=== PATIENT | female | born 2000 | race African-American/Black ===

== ENCOUNTER 2022-03-01 22:20 | Inpatient (IN) ==
[2022-03-02 00:11] LABS: Urine Appearance CLOUDY (Clear); Urine Color Yellow (Yellow); Urine Specific Gravity 1.025 (1.001-1.035)
[2022-03-02 00:12] LABS: Bilirubin,Urine Negative (Negative); Blood, Urine Large mg/dL (Negative); Glucose,Urine (UA) Negative (Negative); Ketones,Urine >=160 mg/dL (Negative); Nitrite,Urine Negative (Negative); Protein,Urine 100 mg/dL (Negative)
[2022-03-02 00:14] LABS: Mucus,Urine Occasional /LPF (Occasional); RBC,Urine 43 /HPF (0-4); Squamous Epithelial Cell,Urine Many /HPF (0-10)
[2022-03-02] MEDS ORDERED: MEPERIDINE 50 MG/1 ML VIAL IV ONE (00:20)
[2022-03-02] MEDS ORDERED: LACTATED RINGERS 1,000 ML IV ONE ×3 (00:20→06:03)
[2022-03-02] MEDS ORDERED: ONDANSETRON 4 MG/2 ML VIAL IV ONE (00:21)
[2022-03-02] MEDS ORDERED: TERBUTALINE 1 MG/1 ML VIAL SUBCUT ONE (01:28)
[2022-03-02] MEDS ORDERED: ceFAZolin 3,000 MG in SYRINGE 1 EACH IV ONE (06:47)
[2022-03-02] MEDS ORDERED: TRANEXAMIC ACID 1,000 MG in SODIUM CHLORIDE 0.9% 100 ML IV PRN (06:47)
[2022-03-02] MEDS ORDERED: CARBOPROST TROMETHAMINE 250 MCG/ML AMP IM PRN (06:47)
[2022-03-02] MEDS ORDERED: OXYTOCIN/LR 20 UNIT/1,000 ML BAG IV ONE ×3 (06:47→08:38)
[2022-03-02] MEDS ORDERED: FAMOTIDINE 20 MG/2 ML VIAL IV ONE (06:47)
[2022-03-02] MEDS ORDERED: METHYLERGONOVINE 0.2 MG/1 ML AMP IM PRN (06:47)
[2022-03-02] MEDS ORDERED: miSOPROStoL 200 MCG TABLET RECTAL PRN (06:47)
[2022-03-02] MEDS ORDERED: CITRIC ACID/SODIUM CITRATE 30 ML UDCUP PO ONE (06:47)
[2022-03-02] MEDS ORDERED: BUPIVACAINE SPINAL 0.75% 2 ML AMP SPINAL ONE (06:58)
[2022-03-02] MEDS ORDERED: ONDANSETRON 4 MG/2 ML VIAL ONE (06:58)
[2022-03-02] MEDS ORDERED: buprenorphine HCL 0.3 MG/ML VIAL ONE (06:58)
[2022-03-02] MEDS ORDERED: ePHEDrine 50 MG/ML VIAL IV PRN (07:01)
[2022-03-02] MEDS ORDERED: PROMETHAZINE 25 MG/1 ML VIAL IM PRN (07:01)
[2022-03-02] MEDS ORDERED: diphenhydrAMINE 50 MG/1 ML VIAL IV PRN ×2 (07:01)
[2022-03-02] MEDS ORDERED: hydrOXYzine HCL 25 MG/1 ML VIAL IM PRN (07:01)
[2022-03-02 07:02] LABS: Basophils % 0.1 % (0.0-0.8); Hematocrit 37.1 VOL% (35.7-47.0); Hemoglobin 12.2 GM/DL (12.0-16.0); Immature Granulocytes % 0.9 %; Immature Granulocytes Absolute 0.23 #; Lymphocytes # 0.6 10*3/uL (1.4-4.0); Lymphocytes % 2.3 % (21.3-54.2); Mean Corpuscular HGB Conc 32.9 GM/DL (32-36); Mean Corpuscular Volume 79.1 FL (87-102); Mean Platelet Volume 13.6 FL (9.6-12.0); Monocytes # 1.2 10*3/uL (0.11-0.8); Monocytes % 4.9 % (1.7-12.7); Neutrophils % 91.8 % (38.7-73.9); Platelet Count 176 T/CUMM (130-400); Red Blood Count 4.69 MC/CUMM (3.8-5.5); Red Cell Distribution Width 14.1 % (9.3-17.3); White Blood Count 24.5 T/CUMM (4-12)
[2022-03-02] MEDS ORDERED: TRANEXAMIC ACID 1,000 MG/10 ML VIAL ONE (07:02)
[2022-03-02] MEDS ORDERED: miSOPROStoL 200 MCG TABLET ONE (07:02)
[2022-03-02] MEDS ORDERED: METHYLERGONOVINE 0.2 MG/1 ML AMP ONE (07:03)
[2022-03-02] MEDS ORDERED: SODIUM CHLORIDE 0.9% 100 ML IV ONE (07:03)
[2022-03-02] MEDS ORDERED: CARBOPROST TROMETHAMINE 250 MCG/ML AMP IM ONE (07:03)
[2022-03-02 07:16] LABS: INR 0.9; PT Patient Result 9.9 SECS (10.5-12.0); Partial Thromboplastin Time 29.5 SECS (23.8-32.1)
[2022-03-02 07:21] LABS: Lymphocytes 1 % (20-55); Platelet Estimate Adequate; Total Cells Counted 100
[2022-03-02] MEDS ORDERED: fentaNYL 100 MCG/2 ML VIAL ONE ×2 (07:27→07:38)
[2022-03-02 07:30] LABS: Albumin 2.4 G/DL (3.4-5.0); Bilirubin,Total 0.5 MG/DL (0.20-1.00); Calcium 8.7 MG/DL (8.5-10.1); Osmolality,Calculated 268.1 MOS/KG (273-304); Potassium 3.4 MMOL/L (3.5-5.1); Total Protein 6.7 G/DL (6.4-8.2)
[2022-03-02] MEDS ORDERED: ACETAMINOPHEN INJ 1,000 MG/100 ML VIAL IV ONE (07:32)
[2022-03-02] MEDS ORDERED: propofoL 200 MG/20 ML VIAL IV ONE (07:34)
[2022-03-02] MEDS ORDERED: SUCCINYLCHOLINE 200 MG/10 ML VIAL ONE (07:34)
[2022-03-02 07:39] LABS: Cord Arterial Blood HCO3 18.9 MMOL/L
[2022-03-02 07:40] LABS: Barbiturates Screen,Urine Negative (Negative); Benzodiazepines Screen,Urine Negative (Negative); Cannabinoid Screen,Urine Positive (Negative); Opiate Screen,Urine Negative (Negative); Phencyclidine Screen,Urine Negative (Negative)
[2022-03-02 07:42] LABS: Cord Venous Blood HCO3 19.9 MMOL/L; Cord Venous Blood PCO2 43.4 MMHG; Cord Venous Blood PO2 27.9
[2022-03-02] MEDS ORDERED: HYDROmorphone 1 MG/1 ML SYRINGE IV PRN (08:06)
[2022-03-02] MEDS ORDERED: SODIUM CHLORIDE 0.9% 1,000 ML IV ONE (08:15)
[2022-03-02] MEDS ORDERED: SEVOFLURANE 1 UNIT/15 MINUTE INH ONE (08:15)
[2022-03-02] MEDS: KETOROLAC 30 MG/1 ML VIAL IV SCH ×2 (18:31→20:54)
[2022-03-02] MEDS: ACETAMINOPHEN 500 MG TABLET PO SCH ×2 (18:32→20:52)
[2022-03-02] MEDS ORDERED: ONDANSETRON 4 MG/2 ML VIAL IV PRN (21:14)
[2022-03-02] MEDS ORDERED: SIMETHICONE CHEW 80 MG TABLET PO PRN (21:14)
[2022-03-02] MEDS ORDERED: RHO(D) IMMUNE GLOBULIN 300 MCG SYRINGE IM ONE (21:14)
[2022-03-02] MEDS ORDERED: MAGNESIUM HYDROXIDE SUSP 30 ML UDCUP PO PRN (21:14)
[2022-03-02] MEDS ORDERED: ACETAMINOPHEN 325 MG TABLET PO PRN (21:14)
[2022-03-02] MEDS: DOCUSATE SODIUM 100 MG CAPSULE PO SCH (21:33)
[2022-03-03] MEDS: KETOROLAC 30 MG/1 ML VIAL IV SCH (02:56)
[2022-03-03] MEDS: ACETAMINOPHEN 500 MG TABLET PO SCH (02:58)
[2022-03-03 07:54] LABS: Basophils % 0.1 % (0.0-0.8); Eosinophils % 0.1 % (0.00-10.9); Hematocrit 28.7 VOL% (35.7-47.0); Immature Granulocytes % 0.8 %; Immature Granulocytes Absolute 0.13 #; Lymphocytes # 1.9 10*3/uL (1.4-4.0); Lymphocytes % 12.1 % (21.3-54.2); Mean Corpuscular HGB Conc 33.1 GM/DL (32-36); Mean Corpuscular Volume 79.7 FL (87-102); Mean Platelet Volume 13.3 FL (9.6-12.0); Monocytes # 0.6 10*3/uL (0.11-0.8); Neutrophils % 82.9 % (38.7-73.9); Platelet Count 142 T/CUMM (130-400); Red Cell Distribution Width 14.1 % (9.3-17.3)
[2022-03-03 07:56] LABS: Hemoglobin 9.5 GM/DL (12.0-16.0); White Blood Count 16.1 T/CUMM (4-12)
[2022-03-03] MEDS: DOCUSATE SODIUM 100 MG CAPSULE PO SCH ×2 (08:58→21:39)
[2022-03-03] MEDS: MULTIVITAMIN (PRENATAL) TABLET PO SCH (08:58)
[2022-03-03] MEDS: IBUPROFEN 800 MG TABLET PO PRN ×2 (12:13→21:38)
[2022-03-03] MEDS: FERROUS SULFATE 325 MG TABLET PO SCH (21:40)
[2022-03-04 08:28] VITALS: BP 130/76
[2022-03-04] MEDS: MULTIVITAMIN (PRENATAL) TABLET PO SCH (09:41)
[2022-03-04] MEDS: FERROUS SULFATE 325 MG TABLET PO SCH (09:41)
[2022-03-04] MEDS: DOCUSATE SODIUM 100 MG CAPSULE PO SCH (09:41)
== END 2022-03-04 14:10 | disposition home or self-care (01) | DRG 540 ==
LOC: N.LDOUT 22:20 → N.LD 22:20
PROVIDERS: ADMIT Obstetrics & Gynecology; ATTEND Obstetrics & Gynecology
PROC: LDCSECT (ICD-10-PCS; 2022-03-02 07:15)